=== PATIENT | female | born 1950 | race Caucasian/White ===

== ENCOUNTER 2018-09-03 05:54 | Day surgery (SDC) | payer OTHER ==
[~2018-09-03] VITALS: Ht 162.6 cm; Wt 76.7 kg
[~2018-09-03 05:54] MED LIST: CEFUROXIME500 MG PO; FOLIC ACID1 MG PO; HYZAAR 100-251 EACH PO; LOSARTAN-HCTZ1 EAC1 PO; METFORMIN HCL500 MG PO; MULTIPLE VITAM1 EACH PO; NO TOMA MEDICAMENTOS; OMEGA 3 1,0001 EACH PO; PYRIDIUM DS200 MG PO
== END 2018-09-03 14:20 | disposition home or self-care (01) ==
LOC: CIR.AMB 05:54
DX: M75.122 Complete rotator cuff tear or rupture of left shoulder, not specified as traumatic (principal); M19.012 Primary osteoarthritis, left shoulder

== ENCOUNTER 2021-02-14 08:00 | Outpatient (CLI) | payer OTHER | END 2021-02-14 08:30 | disposition home or self-care (01) | LOC: PPH VACUNA 08:00 | DX: Z23 Encounter for immunization (principal) ==